=== PATIENT | female | born 1945 | race Caucasian/White ===

== ENCOUNTER 2023-08-05 17:23 | Inpatient (IN) | payer OTHER ==
[~2023-08-05] VITALS: Ht 160 cm; Wt 54.9 kg
[2023-08-05 17:23] VITALS: BP_SYST 172; PULSE 79; RESP 20; TEMP 97.9; O2SAT 97
[2023-08-05] MEDS: NACL 0.9% 1,000 ML IV ONE (17:57)
[2023-08-05] MEDS: KETOROLAC TROMETHAMINE 30 MG VIAL IVP ONE (18:02)
[2023-08-05] MEDS: ONDANSETRON HCL 4 MG/2 ML VIAL IVP ONE (18:03)
[2023-08-05] MEDS: LORazepam 2 MG/ML VIAL IVP ONE (18:07)
[2023-08-05 18:13] LABS: ANION GAP 9 (5-15); CALCIUM 8.3 mg/dL (8.4-11.0); CARBON DIOXIDE 25 mmol/L (23-29); CHLORIDE 106 mmol/L (98-107); CREATININE 0.95 mg/dL (0.55-1.30); GLUCOSE 146 mg/dL (74-106); POTASSIUM 3.5 mmol/L (3.5-5.1); SODIUM SERUM 140 mmol/L (136-145); UREA NITROGEN, BLOOD 21 mg/dL (8-21)
[2023-08-05 18:17] LABS: BASOPHILS # (AUTO) 0.1 K/uL (0.0-0.2); BASOPHILS % (AUTO) 0.9 % (0.0-2.0); EOSINOPHILS # (AUTO) 0.1 K/uL (0.0-0.4); EOSINOPHILS % (AUTO) 1.7 % (0.0-4.0); HEMATOCRIT 37.4 % (36-48); HEMOGLOBIN 12.5 g/dL (12.0-16.0); LYMPHOCYTES # (AUTO) 1.9 K/uL (1.0-5.5); LYMPHOCYTES % (AUTO) 30.5 % (20.5-51.5); MEAN CORPUSCULAR HEMOGLOBIN 29 pg (27-31); MEAN CORPUSCULAR HGB CONC 34 % (32-36); MEAN CORPUSCULAR VOLUME 87 fL (79.0-98.0); MONOCYTES # (AUTO) 0.6 K/uL (0.0-1.0); MONOCYTES % (AUTO) 9.4 % (1.7-9.3); NEUTROPHILS # (AUTO) 3.7 K/uL (1.8-7.7); NEUTROPHILS % (AUTO) 57.5 % (40.0-70.0); PLATELET COUNT (AUTO) 245 K/uL (130-430); RED BLOOD CELL COUNT(AUTO) 4.29 MIL/uL (4.2-6.2); RED CELL DISTRIBUTION WIDTH 13.7 % (9.0-15.0); WHITE BLOOD COUNT (AUTO) 6.4 K/uL (4.8-10.8)
[2023-08-05 18:20] LABS: ALCOHOL, BLOOD < 3 mg/dL (<10)
[2023-08-05] MEDS ORDERED: PRAV40TA63 PO (20:01)
[2023-08-05] MEDS ORDERED: ALEN70TA27 PO (20:01)
[2023-08-05] MEDS ORDERED: [UNRECOGNIZED DRUG - CODE] (20:01)
[2023-08-05] MEDS: D5/0.45 NS 1,000 ML IV SCH (22:25)
[2023-08-06 09:00] VITALS: BP_SYST 156; PULSE 56; RESP 16; TEMP 97
[2023-08-06 12:00] VITALS: BP_SYST 131; PULSE 72; RESP 18; TEMP 97.1; O2SAT 98
[2023-08-06 13:03] VITALS: O2SAT 96
[2023-08-06 15:25] VITALS: BP_SYST 131; PULSE 69; RESP 18; TEMP 97.5; O2SAT 99
[2023-08-06] MEDS: ATORVASTATIN 10 MG TABLET PO ONE (19:13)
[2023-08-06 20:10] VITALS: BP_SYST 134; PULSE 70; RESP 18; TEMP 97.4; O2SAT 98
[2023-08-06] MEDS: TEMAZEPAM 7.5 MG CAPSULE PO SCH (20:53)
[2023-08-07 01:00] VITALS: BP_SYST 114; PULSE 67; RESP 18; TEMP 97; O2SAT 99
[2023-08-07 05:47] LABS: BASOPHILS # (AUTO) 0.1 K/uL (0.0-0.2); BASOPHILS % (AUTO) 0.8 % (0.0-2.0); EOSINOPHILS # (AUTO) 0.2 K/uL (0.0-0.4); EOSINOPHILS % (AUTO) 2.8 % (0.0-4.0); HEMATOCRIT 36.1 % (36-48); HEMOGLOBIN 12.1 g/dL (12.0-16.0); LYMPHOCYTES # (AUTO) 2.4 K/uL (1.0-5.5); MEAN CORPUSCULAR HEMOGLOBIN 29 pg (27-31); MEAN CORPUSCULAR HGB CONC 34 % (32-36); MEAN CORPUSCULAR VOLUME 87 fL (79.0-98.0); MONOCYTES # (AUTO) 0.6 K/uL (0.0-1.0); MONOCYTES % (AUTO) 8.7 % (1.7-9.3); NEUTROPHILS # (AUTO) 3.6 K/uL (1.8-7.7); NEUTROPHILS % (AUTO) 52.7 % (40.0-70.0); PLATELET COUNT (AUTO) 228 K/uL (130-430); RED BLOOD CELL COUNT(AUTO) 4.13 MIL/uL (4.2-6.2); RED CELL DISTRIBUTION WIDTH 13.8 % (9.0-15.0); WHITE BLOOD COUNT (AUTO) 6.8 K/uL (4.8-10.8)
[2023-08-07 06:20] LABS: ANION GAP 8 (5-15); CALCIUM 8.3 mg/dL (8.4-11.0); CARBON DIOXIDE 29 mmol/L (23-29); CHLORIDE 109 mmol/L (98-107); CREATININE 1.14 mg/dL (0.55-1.30); GLUCOSE 87 mg/dL (74-106); POTASSIUM 3.6 mmol/L (3.5-5.1); SODIUM SERUM 146 mmol/L (136-145); UREA NITROGEN, BLOOD 15 mg/dL (8-21)
[2023-08-07 08:00] VITALS: BP_SYST 157; PULSE 76; RESP 18; TEMP 97.9; O2SAT 97
[2023-08-07] MEDS: ATORVASTATIN 10 MG TABLET PO SCH (09:07)
[2023-08-07 10:27] VITALS: O2SAT 97
[2023-08-07 12:00] VITALS: BP_SYST 138; PULSE 75; RESP 18; TEMP 98.8; O2SAT 95
[2023-08-07] MEDS ORDERED: POLY17PO4 PO (13:44)
[2023-08-07] MEDS ORDERED: MELA5TAB12 PO (13:44)
[2023-08-07] MEDS: POLYETHYLENE GLYCOL 3350, 17 GM/ POWD.PACK PO ONE (15:42)
[2023-08-07 16:08] VITALS: BP_SYST 132; PULSE 78; RESP 18; TEMP 98.6; O2SAT 98
[2023-08-07 17:29] VITALS: BP_SYST 132; PULSE 78; RESP 18; TEMP 98.6; O2SAT 98
[2023-08-08] MEDS ORDERED: ALENDRONATE SODIUM 35 MG TABLET PO SCH (06:00)
[2023-08-08] MEDS ORDERED: POLYETHYLENE GLYCOL 3350, 17 GM/ POWD.PACK PO SCH (09:00)
== END 2023-08-07 18:05 | disposition home health service (06) | DRG 917 ==
LOC: SED 17:23 → SMU 20:52
PROVIDERS: ADMIT Specialist; ATTEND Specialist
DX: T40.711A Poisoning by cannabis, accidental (unintentional), initial encounter (principal); G92.8 Other toxic encephalopathy; I16.0 Hypertensive urgency; I10 Essential (primary) hypertension; Z79.899 Other long term (current) drug therapy
CPT/HCPCS: 36415; 80048; 84484; 85025; 93005; 96361; 96374; 96375; 99285; G0482; J1885; J2060; J2405